=== PATIENT | male | born 1950 | race Caucasian/White ===

== ENCOUNTER 2025-01-07 12:29 | Inpatient (IN) | payer OTHER, MEDICAID ==
[~2025-01-07] VITALS: Ht 167.6 cm; Wt 210.0 kg
--- NOTE | 2025-01-07 12:46 | ED.PDOC ---
SOB-HPI HPI Comments 74 year old male YAZAN presents to the ED with chief complaint of SOB and hypotension. EMS reports patient had been recently discharged from [facility] yesterday after staying for a week due to pneumonia. EMS relays patient started to experience nausea, dizziness, and weakness since returning home and called 911 today due to continuing to experience the same symptoms. EMS states patient's BP on scene was noted to be 54/40 and his O2 saturation was at 88% on 3L of O2 via NC. EMS notes they provided the patient O2 via non-rebreather, going up to 99% along with IVF, which improved his BP to 105/70. Patient reports that he feels a bit better with the O2 and fluids provided. Patient denies any chest pain, cough, congestion, fever, chills, dizziness, or vomiting. Chief Complaint: Shortness of Breath Time Seen by MD: 12:41 Reviewed notes: Nurses Notes, Pharmacist Helper Notes, Medications, Allergies Information Source: Patient, Emergency Med Personnel Mode of Arrival: EMS Severity: Moderate Timing: Days Duration: Since onset Context: At Rest PE Risk Factors: None History of: Asthma, CHF, Recent Antibiotic Prehospital treatment: IVF, Oxygen Modifying Factors: Nothing Past Medical History PAST MEDICAL HISTORY: Asthma, CHF, CKF, DM, GERD, HTN, Thyroid Surgical History: CABG, Cholecystectomy, Tonsillectomy Family History Family History: Reviewed,noncontributory to illness, Family hx of DM Social History Smoker: Non-Smoker Alcohol: Occasionally Drugs: Denies Drug Use Lives In: Home Constitutional: reports: weakness; denies: chills, diaphoresis, fatigue, fever, malaise, sweats, others EENTM: denies: blurred vision, double vision, ear bleeding, ear discharge, ear drainage, ear pain, ear ringing, eye pain, eye redness, hearing loss, mouth pain, mouth swelling, nasal discharge, nose bleeding, nose congestion, nose pain , photophobia, tearing, throat pain, throat swelling, voice changes, others Respiratory: reports: shortness of breath; denies: cough, hemoptysis, orthopnea, SOB at rest, SOB with excertion, stridor, wheezing, others Cardiovascular: denies: chest pain, dizzy spells, diaphoresis, Dyspnea on exertion, edema, irregular heart beat, left arm pain, lightheadedness, palpitations, PND, syncope, others Gastrointestinal: reports: nausea; denies: abdomen distended, abdominal pain, blood streaked bowels, constipated, diarrhea, dysphagia, difficulty swallowing, hematemesis, melena, poor appetite, poor fluid intake, rectal bleeding, rectal pain, vomiting, others Genitourinary: denies: burning, dysuria, flank pain, frequency, hematuria, incontinence, penile discharge, penile sore, pain, testicle pain, testicle swelling, urgency, others Neurological: reports: dizziness; denies: fainting, headache, left sided numbness, left sided weakness, numbness, paresthesia, pre-existing deficit, right sided numbness, right sided weakness, seizure, speech problems, tingling, tremors, weakness, others Musculoskeletal: denies: back pain, gout, joint pain, joint swelling, muscle pain, muscle stiffness, neck pain, others Integumetry: denies: bruises, change in color, change in hair/nails, dryness, laceration, lesions, lumps, rash, wounds, others Allergic/Immunocompromised: denies: Difficulty Healing, Frequent Infections, Hives, Itching, others Hematologic/Lymphatic: denies: anemia, blood clots, easy bleeding, easy bruising, swollen glands, others Endocrine: denies: excessive hunger, excessive sweating, excessive thirst, excessive urination, flushing, intolerance to cold, intolerance to heat, unexplained weight gain, unexplained weight loss, others Psychiatric: denies: anxiety, bipolar disorder, depression, hopeless, panic disorder, schizophrenia, sleepless, suicidal, others All Other Systems: Reviewed and Negative Physical Exam General Appearance: Moderate Distress HEENT: Normal ENT Inspection, Pharynx Normal, TMs Normal Neck: Full Range of Motion, Non-Tender, Normal, Normal Inspection Respiratory: Chest Non-Tender, Decreased Breath Sounds, No Accessory Muscle Use, Respiratory Distress, Rhonchi Cardiovascular: No Edema, No JVD, No Murmur, No Gallop, Normal Peripheral Pulses, Regular Rate/Rhythm Breast Exam: Deferred Gastrointestinal: No Organomegaly, Non Tender, No Pulsatile Mass, Normal Bowel Sounds, Soft Genitalia: Deferred Pelvic: Deferred Rectal: Deferred Extremities: No calf tenderness, Normal capillary refill, Normal inspection, Normal range of motion, Non-tender, No pedal edema Musculoskeletal : Apperance: Normal Neurologic: Alert, loading checker II-XII nml as Tested, No Motor Deficits, Normal Affect, Normal Mood, No Sensory Deficits Cerebellar Function: Normal Reflexes: Normal Skin: Dry, Normal Color, Warm Lymphatic: No Adenopathy EKG EKG : Pulse Rate (adult): 79 [place]: Normal Cardiac Rhythm: NSR Block: None Hypertrophy: None ST: Normal Was a procedure done? Was a procedure done?: No Differential Dx Differential Diagnosis: Asthma, Bronchitis, CHF, COPD, Pneumonia X-Ray, Labs, Meds, VS Vital Signs Date Time Temp Pulse Resp B/P (MAP) Pulse Ox O2 Delivery O2 Flow Rate FiO2 01/07/25 14:15 97.1 61 16 117/59 (78) 99 97.1 01/07/25 14:00 61 16 99 Non-Rebreather 10 N/A 01/07/25 12:46 79 01/07/25 12:45 22 10 Non-Rebreather 15 N/A 01/07/25 12:41 79 01/07/25 12:38 99.0 75 22 94/20 (44) 100 Lab Test 01/07/25 15:37 01/07/25 14:34 01/07/25 13:25 01/07/25 12:49 Range/Units Troponin I High Sensitivity Pending 8 </=54 ng/L White Blood Count 10.9 H 4.4-10.8 10^3/uL Red Blood Count 4.79 4.5-5.90 10^6/uL Hemoglobin 14.1 13.5-17.5 g/dL Hematocrit 42.7 41.0-53.0 % Mean Corpuscular Volume 89.2 80.0-100.0 fL Mean Corpuscular Hemoglobin 29.4 28.0-32.0 pg Mean Corpuscular Hemoglobin Concent 33.0 32.0-36.0 g/dL Red Cell Distribution Width 14.9 H 11.8-14.3 % Platelet Count 196 140-450 10^3/uL Mean Platelet Volume 7.7 6.9-10.8 fL Neutrophils (%) (Auto) 80.4 H 37.0-80.0 % Lymphocytes (%) (Auto) 11.3 10.0-50.0 % Monocytes (%) (Auto) 7.3 0.0-12.0 % Eosinophils (%) (Auto) 0.5 0.0-7.0 % Basophils (%) (Auto) 0.5 0.0-2.0 % Neutrophils # (Auto) 8.8 H 1.6-8.6 10 ^3/uL Lymphocytes # (Auto) 1.2 0.4-5.4 10 ^3/uL Monocytes # (Auto) 0.8 0-1.3 10 ^3/uL Eosinophils # (Auto) 0.1 0-0.8 10 ^3/uL Basophils # (Auto) 0.1 0-0.2 10 ^3/uL Nucleated Red Blood Cells 0.1 % Sodium Level 140 136-145 mmol/L Potassium Level 3.9 3.5-5.1 mmol/L Chloride Level 105 98-107 mmol/L Carbon Dioxide Level 27 20-31 mmol/L Anion Gap 8 5-15 Blood Urea Nitrogen 21 9-23 mg/dL Creatinine 1.22 0.700-1.30 mg/dL Glomerular Filtration Rate Calc 62 >90 mL/min BUN/Creatinine Ratio 17.2 10.0-20.0 Serum Glucose 150 H 74-106 mg/dL Lactic Acid Level Pending Calcium Level 8.7 8.7-10.4 mg/dL B-Type Natriuretic Peptide 58.58 0-100 pg/mL Influenza Type A Antigen Negative Negative Influenza Type B Antigen Negative Negative SARS-CoV-2 Antigen (Rapid) Negative NEGATIVE POC Glucose 148 H 70-106 mg/dl IV Hep-Lock was established The CBC shows an elevated white blood cell count of 10.9 The chemistry panel is within normal limits The influenza a and influenza B are negative The COVID test is negative At this time, the troponin level is eight The chest x-ray shows: No sign of abnormalities The patient was being admitted to the hospitalist Images Reviewed?: Images reviewed and evaluated by me Time of 1ST Reevaluation: 15:54 Reevaluation 1ST: Unchanged Patient Education/Counseling: Diagnosis, Treatment, Prognosis Family Education/Counseling: No Family Present Additional Information -Reviewed patient's previous visit(s): - The following tests were ordered, and results were reviewed by me: - Additional information was gathered from interviewing the following independent Historian: EMS - I reviewed and agreed with the following test results read by other provider: - I discussed treatments and results with medical personnel and: patient Comprehensive systems review obtained and negative except for what is stated in the HPI. Departure 1 Departure Time of Disposition: 15:52 Impression: Primary Impression: Acute respiratory failure Qualified Codes: J96.01 - Acute respiratory failure with hypoxia Disposition: 09 ADMITTED INPATIENT Admit to: Tele Condition: Fair Critical Care Note Critical Care Time?: Yes (45 min-critical care time only) Stability Stability form required: Yes Unstable for transfer: Telemetry monitoring (Telemetry monitoring required), ED Physician Assesment (Clinical assesment) Heart Score Heart Score: Heart Score Response (Comments) Value History Moderate Suspicious 1 EKG Normal 0 Age >65 2 Risk Factors >3 or Hx ASHD 2 Troponin Normal limit 0 Total 5 I personally scribed for JANIS JANG MD ([email or web address]) on 01/07/25 at 12:46. Electronically submitted by John White ([email or web address]). JANIS JANG MD Jan 07, 2025 12:46
--- NOTE | 2025-01-07 13:52 | ECG ---
[facility] Test Date: 2025-01-07 Test Time: 12:41:55 Pat Name: JAMIE THOMPSON Department: ER Room: 0251T Gender: M Director Auto: GONZALEZ : 1950 Requested By: JANIS JANG Order Number: [id number] Reading MD: Schuyler Wilkinson Measurements Intervals [place] Rate: 79 P: 0 AR: 0 QRS: -23 QRSD: 96 T: 50 QT: 409 QTc: 469 Interpretive Statements artifacts Normal sinus rhythm with premature atrial contractions. Anteroseptal infarct, age indeterminate Electronically Signed On 01-11-2025 18:44:07 PDT by Schuyler Wilkinson Please click the below link to view image of tracing.
[2025-01-07 14:00] VITALS: PULSE 61; RESP 16; O2SAT 99
--- NOTE | 2025-01-07 14:10 | DVH ---
CHEST RADIOGRAPH Indication: sob Technique: Single frontal view of the chest was obtained COMPARISON: None FINDINGS: Lines and Tubes: Median sternotomy Lungs: Clear Pleura: No effusion. No pneumothorax. Cardiomediastinal contours: Unremarkable Bones: Unremarkable IMPRESSION: No acute disease.
[2025-01-07 14:51] LABS: COVID19 ANTIGEN SOFIA FIA NEGATIVE (NEGATIVE); Rapid Influenza A Negative (Negative); Rapid Influenza B Negative (Negative)
[2025-01-07 15:01] LABS: Basophils # (auto) 0.1 10 ^3/uL (0-0.2); Basophils % (auto) 0.5 % (0.0-2.0); Eosinophils # (auto) 0.1 10 ^3/uL (0-0.8); Eosinophils % (auto) 0.5 % (0.0-7.0); Hematocrit 42.7 % (41.0-53.0); Hemoglobin 14.1 g/dL (13.5-17.5); Lymphocytes # (auto) 1.2 10 ^3/uL (0.4-5.4); Lymphocytes % (auto) 11.3 % (10.0-50.0); Mean Corpuscular Hemoglobin 29.4 pg (28.0-32.0); Mean Corpuscular Volume 89.2 fL (80.0-100.0); Monocytes # (auto) 0.8 10 ^3/uL (0-1.3); Monocytes % (auto) 7.3 % (0.0-12.0); Neutrophils # (auto) 8.8 10 ^3/uL (1.6-8.6); Neutrophils % (auto) 80.4 % (37.0-80.0); Nucleated Red Blood Cells % 0.1 %; Platelet Count (auto) 196 10^3/uL (140-450); Red Blood Cells 4.79 10^6/uL (4.5-5.90); Red Cell Distribution Width 14.9 % (11.8-14.3); White Blood Cell 10.9 10^3/uL (4.4-10.8)
[2025-01-07 15:09] LABS: Chloride 105 mmol/L (98-107); Potassium 3.9 mmol/L (3.5-5.1); Sodium 140 mmol/L (136-145)
[2025-01-07 15:10] LABS: Anion Gap 8 (5-15); Calcium 8.7 mg/dL (8.7-10.4); Carbon Dioxide 27 mmol/L (20-31)
[2025-01-07 15:15] LABS: BUN/Creatinine Ratio 17.2 (10.0-20.0); Blood Urea Nitrogen 21 mg/dL (9-23)
[2025-01-07 15:16] LABS: Glucose 150 mg/dL (74-106)
[2025-01-07] MEDS ORDERED: NITROGLYCERIN 0.4 MG SL TAB SL PRN (16:30)
[2025-01-07] MEDS ORDERED: LEVO50TA7 (16:33)
[2025-01-07] MEDS ORDERED: EMPA1TAB3 (16:33)
[2025-01-07] MEDS ORDERED: ATOR40TA52 (16:33)
[2025-01-07] MEDS ORDERED: FURO20TA4 (16:33)
[2025-01-07] MEDS ORDERED: TICA90TA (16:33)
[2025-01-07] MEDS ORDERED: VENL150C58 (16:33)
[2025-01-07] MEDS ORDERED: ESCI1TAB37 (16:33)
[2025-01-07] MEDS ORDERED: PREG50CA80 (16:33)
[2025-01-07] MEDS ORDERED: DEXTROSE (50%) 50ML SYRG IV PRN (16:45)
[2025-01-07] MEDS: InsuLIN REG 1unit/0.01ml Soln (100units/ml) SC SCH (17:00)
[2025-01-07] MEDS: ACCU-CHEK COMFORT CURVE STRIP VI SCH (17:13)
[2025-01-07 17:22] LABS: LDL Cholesterol 48 mg/dL (< 100)
[2025-01-07 17:24] LABS: Cholesterol 102 mg/dL (< 200)
[2025-01-07 17:26] LABS: HDL Cholesterol 28 mg/dL (40-59); Triglycerides 156 mg/dL (< 150)
[2025-01-07 17:27] LABS: Erythrocyte Sedimentation Rate 28 mm/hr (0-20)
[2025-01-07] MEDS: methylPREDNISolone SOD SUCC 40 MG/ML VL IV ONE (17:34)
[2025-01-07 18:27] VITALS: PULSE 67; RESP 16; O2SAT 94
[2025-01-07] MEDS: ALBUTEROL SULF 2.5 MG/0.5ML(0.5%) NEB SOLN NEB SCH (18:27)
[2025-01-07] MEDS: IPRATROPIUM BROM 0.5 MG/2.5ML INH SOL NEB SCH (18:27)
[2025-01-07 18:35] VITALS: PULSE 66; RESP 16; O2SAT 96
[2025-01-07 19:00] VITALS: BP 121/76; PULSE 66; RESP 16; TEMP 97.1; O2SAT 94
[2025-01-07 20:00] VITALS: PULSE 74; RESP 17; O2SAT 93
[2025-01-07] MEDS: TICAGRELOR 90 MG TAB PO SCH (21:53)
[2025-01-07] MEDS: PREGABALIN 25 MG CAP PO SCH (21:53)
[2025-01-07] MEDS: ATORVASTATIN 20 MG TAB PO SCH (22:05)
[2025-01-08] VITALS (16 sets, daily range): BP systolic 128–158; BP diastolic 56–80; PULSE 56–88; RESP 16–19; TEMP 97.4–98.5; O2SAT 92–98
[2025-01-08 00:16] LABS: Urine Bacteria None Seen /hpf (None Seen)
[2025-01-08 00:35] LABS: Urine Blood Negative /uL (Negative); Urine Clarity Clear (Clear); Urine Color Colorless (Yellow); Urine Protein, UAD TRACE (Negative); Urine Specific Gravity 1.013 (1.001-1.035); Urine Squamous Epithelial Cell None Seen /hpf (<5); Urine Urobilinogen Normal (Negative); Urine pH 6.5 (5.0-9.0)
[2025-01-08] MEDS: Empagliflozin (Jardiance) 25 MG TABLET PO SCH (10:00)
[2025-01-08] MEDS: methylPREDNISolone SOD SUCC 40 MG/ML VL IV SCH (10:06)
[2025-01-08] MEDS: FUROSEMIDE 20 MG TAB PO SCH (10:06)
[2025-01-08] MEDS: LEVOTHYROXINE SODIUM 50 MCG TAB PO SCH (10:07)
--- NOTE | 2025-01-08 10:28 | DVHHP2 ---
History of Present Illness Reason for Visit: SHORTNESS OF BREATH History of Present Illness Patient was a 74-year-old male transported to the emergency room by EMS with shortness of breath. According to the patient, he has been in and out of a [facility] over the past two weeks initially reported with bacterial pneumonia, now with recent diagnosis influenza. Patient had worsening dyspnea today in addition to wheezing, which prompted him to call 911. Upon arrival by EMS the patient was noted to be severely hypotensive as well as hypoxic. At the time of assessment, the patient was found to be on a non- rebreather% FiO2. Has a significant history of coronary artery disease with previous CABG as well as stent placement, asthma, COPD, diabetes mellitus. Cardiovascular: CAD, CHF, HTN, CA Pulmonary: Asthma, COPD Endocrine: Diabetes, Hyperthyroidism Past Surgical History: CABG, Other (Cholecystectomy), Tonsillectomy Family History: None Smoke: No ALCOHOL: none Lives: with Family Review of Systems Constitutional: No: Fever, Chills, Sweats, Weakness, Malaise, Other Eyes: No: Pain, Vision change, Conjunctivae inflammation, Eyelid inflammation, Other, Redness Respiratory: Cough, Shortness of breath, Wheezing Cardiovascular: No: Chest Pain, Palpitations, Orthopnea, Paroxysmal Noc. Dys pnea, Edema, Lt Headedness, Other Gastrointestinal: No: Nausea, Vomiting, Abdominal Pain, Diarrhea, Constipation, Melena, Hematochezia, Other Genitourinary: No Dysuria, No Frequency, No Incontinence, No Hematuria, No Retention, No Other Musculoskeletal: No: other, neck pain, shoulder pain, arm pain, back pain, hand pain, leg pain, foot pain Skin: No: Rash, Lesions, Jaundice, Bruising, Other Neurological: No: Weakness, Numbness, Incoordination, Change in speech, Confusion, Seizures, Other Allergies: Coded Allergies: NO KNOWN ALLERGIES (Unverified , 01/07/25) Medications Current Medications Medications Dose Ordered Sig/Guilel Route Start Time Stop Time Status Last Admin Dose Admin Nitroglycerin 0.4 mg Q5MINP PRN SL 01/07/25 16:30 Morphine Sulfate 2 mg Q30M PRN IV 01/07/25 16:30 Methylprednisolone Sodium Succinate 40 mg DAILY IV 01/08/25 10:00 01/08/25 10:06 40 MG Albuterol 2.5 mg Q6HWA NEB 3/11/25 18:00 01/08/25 06:51 2.5 MG Ipratropium [place] 0.5 mg Q6HWA NEB 01/07/25 18:00 01/08/25 06:51 0.5 MG Diagnostic Test (Pha) 1 strip ACHS 01/07/25 17:00 01/08/25 07:02 1 STRIP Insulin Human Regular ACHS SC 01/07/25 17:00 01/07/25 21:59 3 UNITS Dextrose 50 ml UD PRN IV 01/07/25 16:45 Furosemide 40 mg DAILY PO 01/08/25 10:00 01/08/25 10:06 40 MG Levothyroxine Sodium 50 mcg DAILY PO 01/08/25 10:00 01/08/25 10:07 50 MCG Ticagrelor 90 mg BID PO 01/07/25 22:00 01/08/25 10:06 90 MG Atorvastatin Calcium 40 mg HS PO 01/07/25 22:00 01/07/25 22:05 40 MG Patient Own Medication 25 mg DAILY PO 01/08/25 10:00 Pregabalin 50 mg BID PO 01/07/25 22:00 01/08/25 10:07 50 MG Exam Vital Signs Vital Signs Date Time Temp Pulse Resp B/P (MAP) Pulse Ox O2 Delivery O2 Flow Rate FiO2 01/08/25 10:06 158/75 01/08/25 08:50 98.5 88 18 98 98.5 01/08/25 06:51 Nasal Cannula 4.0 01/08/25 06:51 36 General Appearance: Alert, Oriented X3, mild distress HEENT: Atraumatic, PERRLA Respiratory: Other (Expiratory wheeze) Cardiovascular: Normal S1, Normal S2 Abdominal: Normal bowel sounds, Soft, No tenderness, No hepatospenomegaly Extremities: No cyanosis, No edema, Normal pulses, No tenderness/swelling Skin: No rashes, No breakdown, No significant lesion Neuro: Normal speech, Strength at 5/5 X4 ext, Sensation intact, Cranial nerves 3-12 NL Psych/Mental Status: Mental status NL, Mood NL Labs/Xrays Labs Test 01/08/25 06:48 01/07/25 23:58 01/07/25 18:38 01/07/25 14:34 Range/Units POC Glucose 154 H 70-106 mg/dl Urine Color Colorless Yellow Urine Clarity Clear Clear Urine pH 6.5 5.0-9.0 Urine Specific [place] 1.013 1.001-1.035 Urine Protein Trace H Negative Urine Ketones Negative Negative Urine Blood Negative Negative /uL Urine Nitrite Negative Negative Urine Bilirubin Negative Negative Urine Urobilinogen Normal Negative mg/dL Urine Leukocyte Esterase Negative Negative /uL Urine RBC 1 0 - 3 /hpf Urine Microscopic WBC 0-3 /HPF Urine Squamous Epithelial Cells None seen <5 /hpf Urine Bacteria None seen None Seen /hpf Urine Glucose 4+ H Normal mg/dL Troponin I High Sensitivity 9 </=54 ng/L White Blood Count 10.9 H 4.4-10.8 10^3/uL Red Blood Count 4.79 4.5-5.90 10^6/uL Hemoglobin 14.1 13.5-17.5 g/dL Hematocrit 42.7 41.0-53.0 % Mean Corpuscular Volume 89.2 80.0-100.0 fL Mean Corpuscular Hemoglobin 29.4 28.0-32.0 pg Mean Corpuscular Hemoglobin Concent 33.0 32.0-36.0 g/dL Red Cell Distribution Width 14.9 H 11.8-14.3 % Platelet Count 196 140-450 10^3/uL Mean Platelet Volume 7.7 6.9-10.8 fL Neutrophils (%) (Auto) 80.4 H 37.0-80.0 % Lymphocytes (%) (Auto) 11.3 10.0-50.0 % Monocytes (%) (Auto) 7.3 0.0-12.0 % Eosinophils (%) (Auto) 0.5 0.0-7.0 % Basophils (%) (Auto) 0.5 0.0-2.0 % Neutrophils # (Auto) 8.8 H 1.6-8.6 10 ^3/uL Lymphocytes # (Auto) 1.2 0.4-5.4 10 ^3/uL Monocytes # (Auto) 0.8 0-1.3 10 ^3/uL Eosinophils # (Auto) 0.1 0-0.8 10 ^3/uL Basophils # (Auto) 0.1 0-0.2 10 ^3/uL Nucleated Red Blood Cells 0.1 % Erythrocyte Sedimentation Rate 28 H 0-20 mm/hr Sodium Level 140 136-145 mmol/L Potassium Level 3.9 3.5-5.1 mmol/L Chloride Level 105 98-107 mmol/L Carbon Dioxide Level 27 20-31 mmol/L Anion Gap 8 5-15 Blood Urea Nitrogen 21 9-23 mg/dL Creatinine 1.22 0.700-1.30 mg/dL Glomerular Filtration Rate Calc 62 >90 mL/min BUN/Creatinine Ratio 17.2 10.0-20.0 Serum Glucose 150 H 74-106 mg/dL Hemoglobin A1c 6.3 H <5.7 % A1C Lactic Acid Level 1.3 0.4-2.0 mmol/L Calcium Level 8.7 8.7-10.4 mg/dL C-Reactive Protein High Sensitivity 0.72 <1.0 mg/dL B-Type Natriuretic Peptide 58.58 0-100 pg/mL Triglycerides Level 156 H < 150 mg/dL Cholesterol Level 102 < 200 mg/dL LDL Cholesterol 48 < 100 mg/dL HDL Cholesterol 28 L 40-59 mg/dL Test 01/07/25 13:25 Range/Units Influenza Type A Antigen Negative Negative Influenza Type B Antigen Negative Negative SARS-CoV-2 Antigen (Rapid) Negative NEGATIVE Assessment/Plan Assessment/Plan Impression: -acute hypoxic respiratory failure -COPD with exacerbation -coronary artery disease with previous CABG and stent placement -obesity -hypothyroidism -diabetes mellitus Plan: -admit to telemetry unit -bronchodilators, Pulmicort, Solu-Medrol -reconcile home medications -regular insulin sliding scale -titrate O2 to keep saturation greater than 92%. Wean off of high-flow -repeat labs chest x-ray in a.m. Total time spent with patient discussing and formulating plan of care: 35 minutes. This medical document was created using an electronic medical record system with [employer] dictation system. Although this document has been carefully reviewed, there may still be some phonetic and typographical errors. These areas are purely typographical due to imperfections of the software programs, and do not reflect any compromise in the patient's medical care. Plan discussed with: Patient, Other (RN) My Orders Orders - YARITZA HUBER SHINGLE PACKER Procedure Category Date Status Time Admit ADMIT 01/07/25 Transmitted 16:29 Nitroglycerin PHA 01/07/25 In Process Sublingual (Ntrostat 16:30 Morphine Sulfate PHA 01/07/25 In Process Injection 16:30 Stat Ekg For Chest DUDLEY 01/07/25 In Process Pain 16:29 Notify Of Changes DUDLEY 01/07/25 In Process From Base 16:29 X Ray Developing Machine Operator For DUDLEY 01/07/25 In Process 24 Hours 16:29 Emergency Dysrhythmia DUDLEY 01/07/25 In Process Protocol 16:29 Rhythm Strips Once DUDLEY 01/07/25 In Process Every Shift 16:29 Oxygen By Nasal RT 01/07/25 Transmitted Cannula 16:29 Methylprednisolone PHA 01/08/25 In Process Sod Succ (Solu Medrol 10:00 Albuterol Medneb PHA 01/07/25 In Process (Ventolin Medneb) 18:00 Ipratropium Medneb PHA 01/07/25 In Process (Atrovent Medneb) 18:00 Consistent DIET 01/07/25 Transmitted Carb(Ccho)Diabetes Dinner Glucose Blood PHA 01/07/25 In Process (Accu-Chek Comfort 17:00 Insulin R (Human) PHA 01/07/25 In Process (Insulin R) 17:00 Dextrose 50% Syringe PHA 01/07/25 In Process 16:45 Furosemide Tablet PHA 01/08/25 In Process (Lasix Tablet) 10:00 Levothyroxine Tablet PHA 01/08/25 In Process (Synthroid Tablet) 10:00 Ticagrelor (Brilinta) PHA 01/07/25 In Process 22:00 Atorvastatin (Lipitor) PHA 01/07/25 In Process 22:00 (Nf) Empagliflozin PHA 01/08/25 In Process (Jardiance) 10:00 Pregabalin Capsule PHA 01/07/25 In Process (Lyrica Capsule) 22:00 Date of Service: Jan 07, 2025 Billing Provider: YARITZA HUBER NP Common Visit Codes: [id number] INP/OBS CARE (HIGH) YARITZA HUBER NP Jan 08, 2025 10:28
--- NOTE | 2025-01-08 11:52 | DVHPN2 ---
Subjective Patient continues to report having shortness of breath. Reviewed: Care Plan, H&P, Labs Changes from previous H/P or p: No Changes Eyes: No Pain, No Vision change, No Conjunctivae inflammation, No Eyelid inflammation, No Other, No Redness Cardiovascular: No Chest Pain, No Palpitations, No Orthopnea, No Paroxysmal Noc. Dyspnea, No Edema, No Lt Headedness, No Other Respiratory: Cough, Shortness of breath, Wheezing Gastrointestinal: No Nausea, No Vomiting, No Abdominal Pain, No Diarrhea, No Constipation, No Melena, No Hematochezia, No Other Genitourinary: No Dysuria, No Frequency, No Incontinence, No Hematuria, No Retention, No Other Musculoskeletal: No other, No neck pain, No shoulder pain, No arm pain, No back pain, No hand pain, No leg pain, No foot pain Skin: No Rash, No Lesions, No Jaundice, No Bruising, No Other Objective Vitals Vital Signs Date Time Temp Pulse Resp B/P (MAP) Pulse Ox O2 Delivery O2 Flow Rate FiO2 01/08/25 10:06 158/75 01/08/25 10:00 98 Nasal Cannula* 4 36 01/08/25 08:50 98.5 88 18 98.5 Intake/Output Intake and Output 01/08/25 07:00 Intake Total 0 ml Output Total 0 ml Balance 0 ml Intake Oral 0 ml Output Urine Total 0 ml General Appearance: Alert, Oriented X3, Cooperative, No acute distress HEENT: Atraumatic, PERRLA Lungs: Normal air movement, Other (Inspiratory wheezing) Cardiovascular: Normal S1, Normal S2 Musculoskeletal: Normal sensory function, Normal motor function Neuro: Normal speech Skin: Dry, Intact, Warm Psych/Mental Status: Mental status NL, Mood NL Medications Current Medications Medications Dose Ordered Sig/Guille Route Start Time Stop Time Status Last Admin Dose Admin Nitroglycerin 0.4 mg Q5MINP PRN SL 01/07/25 16:30 Morphine Sulfate 2 mg Q30M PRN IV 01/07/25 16:30 Methylprednisolone Sodium Succinate 40 mg DAILY IV 01/08/25 10:00 01/08/25 10:06 40 MG Albuterol 2.5 mg Q6HWA NEB 01/07/25 18:00 01/08/25 06:51 2.5 MG Ipratropium Clear 0.5 mg Q6HWA NEB 01/07/25 18:00 01/08/25 06:51 0.5 MG Diagnostic Test (Pha) 1 strip ACHS 01/07/25 17:00 01/08/25 07:02 1 STRIP Insulin Human Regular ACHS SC 01/07/25 17:00 01/07/25 21:59 3 UNITS Dextrose 50 ml UD PRN IV 01/07/25 16:45 Furosemide 40 mg DAILY PO 01/08/25 10:00 01/08/25 10:06 40 MG Levothyroxine Sodium 50 mcg DAILY PO 01/08/25 10:00 01/08/25 10:07 50 MCG Ticagrelor 90 mg BID PO 01/07/25 22:00 01/08/25 10:06 90 MG Atorvastatin Calcium 40 mg HS PO 01/07/25 22:00 01/07/25 22:05 40 MG Patient Own Medication 25 mg DAILY PO 01/08/25 10:00 Pregabalin 50 mg BID PO 01/07/25 22:00 01/08/25 10:07 50 MG Laboratory Results Laboratory Tests 01/07/25 14:34 Chemistry Test 01/07/25 14:34 Calcium Level 8.7 mg/dL (8.7-10.4) Lipid panel Test 01/07/25 14:34 Cholesterol Level 102 mg/dL (< 200) HDL Cholesterol 28 mg/dL (40-59) L Triglycerides Level 156 mg/dL (< 150) H Cardiac Markers Test 01/07/25 14:34 B-Type Natriuretic Peptide 58.58 pg/mL (0-100) HgA1c, TSH Test 01/07/25 14:34 Hemoglobin A1c 6.3 % A1C (<5.7) H Urinalysis Test 01/07/25 23:58 Urine Color Colorless (Yellow) Urine Clarity Clear (Clear) Urine pH 6.5 (5.0-9.0) Urine Specific [place] 1.013 (1.001-1.035) Urine Protein Trace (Negative) H Urine Ketones Negative (Negative) Urine Blood Negative /uL (Negative) Urine Nitrite Negative (Negative) Urine Bilirubin Negative (Negative) Urine Urobilinogen Normal mg/dL (Negative) Urine Leukocyte Esterase Negative /uL (Negative) Urine RBC 1 /hpf (0 - 3) Urine Microscopic WBC /HPF (0-3) Urine Squamous Epithelial Cells None seen /hpf (<5) Urine Bacteria None seen /hpf (None Seen) Urine Glucose 4+ mg/dL (Normal) H Labs and/or images reviewed: Labs reviewed by me, Image(s) reviewed by me Assessment/Plan Assessment/Plan Impression: -acute hypoxic respiratory failure -COPD with exacerbation -coronary artery disease with previous CABG and stent placement -obesity -hypothyroidism -diabetes mellitus Plan: -events: Patient's hypotension has resolved. Continues to report having subjective dyspnea is currently on 4 L via nasal cannula. Repeat labs. If D- dimer is elevated, consider CT angiogram of the chest given multiple admissions to the hospital. -bronchodilators, Pulmicort, Solu-Medrol -reconcile home medications -regular insulin sliding scale -titrate O2 to keep saturation greater than 92%. Currently on nasal cannula at 4 liters/minute -repeat labs. Total time spent with patient discussing and formulating plan of care: 35 minutes. This medical document was created using an electronic medical record system with [employer] dictation system. Although this document has been carefully reviewed, there may still be some phonetic and typographical errors. These areas are purely typographical due to imperfections of the software programs, and do not reflect any compromise in the patient's medical care. Plan discussed with: Patient, Other (RN) My Orders Orders - YARITZA HUBER NP Procedure Category Date Status Time Admit ADMIT 01/07/25 Transmitted 16:29 Nitroglycerin PHA 01/07/25 In Process Sublingual (Ntrostat 16:30 Morphine Sulfate PHA 01/07/25 In Process Injection 16:30 Stat Ekg For Chest [facility] 01/07/25 In Process Pain 16:29 Notify Of Changes [facility] 01/07/25 In Process From Base 16:29 Information Technology Coordinator For [facility] 01/07/25 In Process 24 Hours 16:29 Emergency Dysrhythmia [facility] 01/07/25 In Process Protocol 16:29 Rhythm Strips Once [facility] 01/07/25 In Process Every Shift 16:29 Oxygen By Nasal RT 01/07/25 Transmitted Cannula 16:29 Methylprednisolone PHA 01/08/25 In Process Sod Succ (Solu Medrol 10:00 Albuterol Medneb PHA 01/07/25 In Process (Ventolin Medneb) 18:00 Ipratropium Medneb PHA 01/07/25 In Process (Atrovent Medneb) 18:00 Consistent DIET 01/07/25 Transmitted Carb(Ccho)Diabetes Dinner Glucose Blood PHA 01/07/25 In Process (Accu-Chek Comfort 17:00 Insulin R (Human) PHA 01/07/25 In Process (Insulin R) 17:00 Dextrose 50% Syringe PHA 01/07/25 In Process 16:45 Furosemide Tablet PHA 01/08/25 In Process (Lasix Tablet) 10:00 Levothyroxine Tablet PHA 01/08/25 In Process (Synthroid Tablet) 10:00 Ticagrelor (Brilinta) PHA 01/07/25 In Process 22:00 Atorvastatin (Lipitor) PHA 01/07/25 In Process 22:00 (Nf) Empagliflozin PHA 01/08/25 In Process (Jardiance) 10:00 Pregabalin Capsule PHA 01/07/25 In Process (Lyrica Capsule) 22:00 Basic Metabolic Panel LAB 01/08/25 Transmitted 11:48 Complete Blood Count LAB 01/08/25 Transmitted 11:48 D-Dimer LAB 01/08/25 Transmitted 11:48 PTPTT LAB 01/08/25 Transmitted 11:48 Abg W/ Co-Ox RT 01/08/25 Transmitted 11:49 Date of Service: Jan 08, 2025 Billing Provider: YARITZA HUBER NP Common Visit Codes: [id number] INP/OBS CARE(HIGH) YARITZA HUBER NP Jan 08, 2025 11:52
[2025-01-08 12:10] LABS: Base Excess 2.6 mmol/L (-2.0-3.0)
[2025-01-08 13:22] LABS: Basophils # (auto) 0 10 ^3/uL (0-0.2); Basophils % (auto) 0.2 % (0.0-2.0); Eosinophils # (auto) 0 10 ^3/uL (0-0.8); Eosinophils % (auto) 0.1 % (0.0-7.0); Hematocrit 50.8 % (41.0-53.0); Hemoglobin 16.6 g/dL (13.5-17.5); Lymphocytes # (auto) 1.1 10 ^3/uL (0.4-5.4); Lymphocytes % (auto) 12.1 % (10.0-50.0); Mean Corpuscular Hemoglobin 29.6 pg (28.0-32.0); Mean Corpuscular Hgb Conc. 32.6 g/dL (32.0-36.0); Mean Corpuscular Volume 90.7 fL (80.0-100.0); Monocytes # (auto) 0.3 10 ^3/uL (0-1.3); Monocytes % (auto) 3.4 % (0.0-12.0); Neutrophils # (auto) 7.5 10 ^3/uL (1.6-8.6); Neutrophils % (auto) 84.2 % (37.0-80.0); Nucleated Red Blood Cells % 1.2 %; Platelet Count (auto) 223 10^3/uL (140-450); Red Blood Cells 5.61 10^6/uL (4.5-5.90); Red Cell Distribution Width 15.2 % (11.8-14.3); White Blood Cell 8.9 10^3/uL (4.4-10.8)
[2025-01-08 13:29] LABS: Carbon Dioxide 28 mmol/L (20-31); Chloride 100 mmol/L (98-107)
[2025-01-08 13:30] LABS: Anion Gap 8 (5-15); Potassium 4.2 mmol/L (3.5-5.1)
[2025-01-08 13:31] LABS: Calcium 9.8 mg/dL (8.7-10.4)
[2025-01-08 13:32] LABS: Sodium 136 mmol/L (136-145)
[2025-01-08 13:36] LABS: Blood Urea Nitrogen 18 mg/dL (9-23)
[2025-01-08 13:41] LABS: Glucose 181 mg/dL (74-106)
[2025-01-08 13:52] LABS: INR 1.03 (0.9-1.15); Prothrombin Time 10.9 sec (9.3-11.8)
[2025-01-09] VITALS (16 sets, daily range): BP systolic 93–137; BP diastolic 63–75; PULSE 59–79; RESP 16–20; TEMP 97.7–97.8; O2SAT 91–97
[2025-01-09] MEDS ORDERED: IOHEXOL 350 MG/ML 100ML IJ ONE (10:07)
[2025-01-09] MEDS: MORPHINE SULFATE INJ 2 MG/ml SYRG IV PRN (12:24)
--- NOTE | 2025-01-09 14:12 | DVH ---
CTA Chest with intravenous contrast INDICATION: HYPOXIA; RULE OUT PE COMPARISON: None TECHNIQUE: Multidetector spiral CTA of the chest was performed of the chest with intravenous contrast . PULMONARY ANGIOGRAPHY PROTOCOL was utilized using a bolus-tracking technique centered on the main p ulmonary artery. Axial, coronal and sagittal multiplanar and MIP reformats were performed. Radiation Dose : 1. Chest: CTDI volume is 26.56 mGy. Dose-length product is 1024.61 mGy*cm The dose indicators for CT are the volume Computed Tomography (CT) Dose Index (CTDIvol) and the Dose Length Product (DLP), and are measured in units of mGy and mGy-cm, respectively. These indicators are not patient dose, but values generated from the CT scanner acquisition factors. The report includes radiation exposure data for exposures received during this examination. Findings: Pulmonary artery: No pulmonary embolism Lower neck: Normal thyroid. Lungs: Patchy bilateral lower lobe airspace opacities. Subtle diffuse patchy ground-glass airspace op acities. Heart/Vascular Structures: Cardiomegaly. Coronary artery calcifications. Vascular calcifications of t he aorta. Lymph Nodes: No adenopathy Pleura: No pleural effusion or significant pneumothorax. Musculoskeletal: No acute osseous abnormality. Degenerative changes of the spine. Soft tissues: Normal. Upper abdomen: Post cholecystectomy. IMPRESSION: Limited examination secondary to patient motion artifact. No pulmonary embolism. Multifocal subtle diffuse patchy ground-glass airspace opacities and bilateral lower lobe airspace op acities. Findings may represent multifocal infection.
[2025-01-09] MEDS ORDERED: VANCOMYCIN PER PHARMACY 0 MG IV SCH (16:45)
[2025-01-09] MEDS: VANCOMYCIN 1GM/250ML KIT 250 ML IV SCH (17:30)
[2025-01-09] MEDS: CEFEPIME 1GM/ 50ML 50 ML IV SCH (21:50)
[2025-01-10] VITALS (19 sets, daily range): BP systolic 123–160; BP diastolic 69–87; PULSE 52–81; RESP 16–24; TEMP 97.2–97.6; O2SAT 90–98
[2025-01-10] MEDS: VANCOMYCIN 750MG KIT 100 ML IV SCH (05:03)
[2025-01-10 06:58] LABS: Basophils # (auto) 0.1 10 ^3/uL (0-0.2); Basophils % (auto) 0.3 % (0.0-2.0); Eosinophils # (auto) 0.1 10 ^3/uL (0-0.8); Eosinophils % (auto) 0.4 % (0.0-7.0); Hematocrit 47.1 % (41.0-53.0); Hemoglobin 15.8 g/dL (13.5-17.5); Lymphocytes # (auto) 2.2 10 ^3/uL (0.4-5.4); Lymphocytes % (auto) 14.8 % (10.0-50.0); Mean Corpuscular Hemoglobin 29.6 pg (28.0-32.0); Mean Corpuscular Hgb Conc. 33.6 g/dL (32.0-36.0); Mean Corpuscular Volume 88.2 fL (80.0-100.0); Monocytes % (auto) 6.8 % (0.0-12.0); Neutrophils # (auto) 11.6 10 ^3/uL (1.6-8.6); Neutrophils % (auto) 77.7 % (37.0-80.0); Nucleated Red Blood Cells % 0.2 %; Platelet Count (auto) 303 10^3/uL (140-450); Red Blood Cells 5.35 10^6/uL (4.5-5.90); Red Cell Distribution Width 14.9 % (11.8-14.3); White Blood Cell 14.9 10^3/uL (4.4-10.8)
[2025-01-10] MEDS: methylPREDNISolone SOD SUCC 125 MG/2 ML VL IV SCH (10:11)
--- NOTE | 2025-01-10 10:31 | DVHPN2 ---
Subjective Patient continues to report having shortness of breath. Reviewed: Care Plan, H&P, Labs Changes from previous H/P or p: No Changes General: Per HPI Eyes: No Pain, No Vision change, No Conjunctivae inflammation, No Eyelid inflammation, No Other, No Redness Cardiovascular: No Chest Pain, No Palpitations, No Orthopnea, No Paroxysmal Noc. Dyspnea, No Edema, No Lt Headedness, No Other Respiratory: Cough, Shortness of breath, Wheezing Gastrointestinal: No Nausea, No Vomiting, No Abdominal Pain, No Diarrhea, No Constipation, No Melena, No Hematochezia, No Other Genitourinary: No Dysuria, No Frequency, No Incontinence, No Hematuria, No Retention, No Other Musculoskeletal: No other, No neck pain, No shoulder pain, No arm pain, No back pain, No hand pain, No leg pain, No foot pain Skin: No Rash, No Lesions, No Jaundice, No Bruising, No Other Objective Vitals Vital Signs Date Time Temp Pulse Resp B/P (MAP) Pulse Ox O2 Delivery O2 Flow Rate FiO2 01/10/25 10:11 139/74 01/10/25 10:04 97 Nasal Cannula 4.0 01/10/25 10:04 36 01/10/25 09:00 97.2 74 16 97.2 Intake/Output Intake and Output 01/10/25 07:00 Intake Total 600 ml Output Total 1200 ml Balance -600 ml Intake Oral 600 ml Output Urine Total 1200 ml # Voids 3 # Bowel Movements 1 General Appearance: Alert, Oriented X3, Cooperative, No acute distress HEENT: Atraumatic, PERRLA Lungs: Normal air movement, Other (Inspiratory wheezing) Cardiovascular: Normal S1, Normal S2 Musculoskeletal: Normal sensory function, Normal motor function Neuro: Normal speech Skin: Dry, Intact, Warm Psych/Mental Status: Mental status NL, Mood NL Medications Current Medications Medications Dose Ordered Sig/Guille Route Start Time Stop Time Status Last Admin Dose Admin Nitroglycerin 0.4 mg Q5MINP PRN SL 01/07/25 16:30 Morphine Sulfate 2 mg Q30M PRN IV 01/07/25 16:30 01/09/25 12:24 2 MG Albuterol 2.5 mg Q6HWA NEB 01/07/25 18:00 01/10/25 05:57 2.5 MG Ipratropium [place] 0.5 mg Q6HWA NEB 01/07/25 18:00 01/10/25 05:58 0.5 MG Diagnostic Test (Pha) 1 strip ACHS 01/07/25 17:00 01/10/25 06:05 1 STRIP Insulin Human Regular ACHS SC 01/07/25 17:00 01/10/25 06:06 2 UNITS Dextrose 50 ml UD PRN IV 01/07/25 16:45 Furosemide 40 mg DAILY PO 01/08/25 10:00 01/10/25 10:11 40 MG Levothyroxine Sodium 50 mcg DAILY PO 01/08/25 10:00 01/10/25 10:10 50 MCG Ticagrelor 90 mg BID PO 01/07/25 22:00 01/10/25 10:10 90 MG Atorvastatin Calcium 40 mg HS PO 01/07/25 22:00 01/09/25 21:50 40 MG Patient Own Medication 25 mg DAILY PO 01/08/25 10:00 Pregabalin 50 mg BID PO 01/07/25 22:00 01/10/25 10:10 50 MG Cefepime HCl 50 ml @ 12.5 mls/hr Q8HR IV 01/09/25 22:00 01/10/25 06:03 12.5 MLS/HR Vancomycin HCl 0 ml @ 0 mls/hr UD IV 01/09/25 16:45 Acetaminophen/ Hydrocodone Bitart 1 tab Q6HPRN PRN PO 01/09/25 17:15 Vancomycin HCl 100 ml @ 100 mls/hr Q12H IV 01/10/25 05:00 01/10/25 05:03 100 MLS/HR Methylprednisolone Sodium Succinate 40 mg DAILY IV 01/10/25 10:00 01/10/25 10:11 40 MG Laboratory Results Laboratory Tests 01/08/25 12:48 01/10/25 05:55 HgA1c, TSH Test 01/10/25 05:55 Thyroid Stimulating Hormone (TSH) 0.85 uIU/mL (0.55-4.78) Urinalysis Test 01/07/25 23:58 Urine Color Colorless (Yellow) Urine Clarity Clear (Clear) Urine pH 6.5 (5.0-9.0) Urine Specific [place] 1.013 (1.001-1.035) Urine Protein Trace (Negative) H Urine Ketones Negative (Negative) Urine Blood Negative /uL (Negative) Urine Nitrite Negative (Negative) Urine Bilirubin Negative (Negative) Urine Urobilinogen Normal mg/dL (Negative) Urine Leukocyte Esterase Negative /uL (Negative) Urine RBC 1 /hpf (0 - 3) Urine Microscopic WBC /HPF (0-3) Urine Squamous Epithelial Cells None seen /hpf (<5) Urine Bacteria None seen /hpf (None Seen) Urine Glucose 4+ mg/dL (Normal) H Microbiology Microbiology Date/Time Source Procedure Growth Status 01/08/25 03:35 Nose MRSA Screen - Final Complete 01/07/25 14:35 Blood Blood Culture - Preliminary NO GROWTH AFTER 48 HOURS OF INCUBATION. Resulted Labs and/or images reviewed: Labs reviewed by me, Image(s) reviewed by me Assessment/Plan Assessment/Plan Impression: -acute hypoxic respiratory failure -COPD with exacerbation -coronary artery disease with previous CABG and stent placement -obesity -hypothyroidism -diabetes mellitus -probable hospital-acquired pneumonia Plan: -events: CT angiogram of the chest negative for pulmonary embolism. Noted bibasilar opacities. -antibiotic started yesterday: Cefepime, vancomycin. Coverage for hospital- acquired pneumonia -bronchodilators, Pulmicort, Solu-Medrol -PT consultation -regular insulin sliding scale -titrate O2 to keep saturation greater than 92%. Currently on nasal cannula at 4 liters/minute -repeat labs. Total time spent with patient discussing and formulating plan of care: 35 minutes. This medical document was created using an electronic medical record system with [employer] dictation system. Although this document has been carefully reviewed, there may still be some phonetic and typographical errors. These areas are purely typographical due to imperfections of the software programs, and do not reflect any compromise in the patient's medical care. Plan discussed with: Patient, Other (RN) My Orders Orders - YARITZA HUBER BOILER HELPER Procedure Category Date Status Time Cefepime 1gm/ 50ml PHA 01/09/25 In Process (Maxipime 1gm/50ml) 22:00 Vancomycin Per PHA 01/09/25 In Process Pharmacy 16:45 Hydrocodone-Acet PHA 01/09/25 In Process 5/325mg Tab ([place] 17:15 Vancomycin Per [facility] 01/11/25 In Process Pharmacy Protoc 05:00 Vancomycin,Trough LAB 01/11/25 Verified 04:00 Vancomycin 750mg Kit PHA 01/10/25 In Process (Vancomycin Hcl) 05:00 Complete Blood Count LAB 01/11/25 Verified 05:00 Complete Blood Count LAB 01/12/25 Verified 05:00 Complete Blood Count LAB 01/13/25 Verified 05:00 Basic Metabolic Panel LAB 01/11/25 Verified 05:00 Basic Metabolic Panel LAB 01/12/25 Verified 05:00 Basic Metabolic Panel LAB 01/13/25 Verified 05:00 Methylprednisolone PHA 01/10/25 In Process Sod Succ (Solu Medrol 10:00 Pt Request For Service PT 01/10/25 Transmitted 10:27 Date of Service: Jan 10, 2025 Billing Provider: YARITZA HUBER NP Common Visit Codes: [id number] INP/OBS CARE(HIGH) YARITZA HUBER NP Jan 10, 2025 10:31
[2025-01-10] MEDS: HYDROcodone-ACET 5/325MG TAB PO PRN (22:29)
[2025-01-11] VITALS (19 sets, daily range): BP systolic 123–144; BP diastolic 8–77; PULSE 54–110; RESP 12–22; TEMP 97.3–97.9; O2SAT 90–98
[2025-01-11 04:55] LABS: Basophils # (auto) 0.1 10 ^3/uL (0-0.2); Basophils % (auto) 0.9 % (0.0-2.0); Eosinophils # (auto) 0.1 10 ^3/uL (0-0.8); Eosinophils % (auto) 0.5 % (0.0-7.0); Hematocrit 47.6 % (41.0-53.0); Hemoglobin 16.1 g/dL (13.5-17.5); Lymphocytes % (auto) 14.2 % (10.0-50.0); Mean Corpuscular Hemoglobin 29.7 pg (28.0-32.0); Mean Corpuscular Hgb Conc. 33.9 g/dL (32.0-36.0); Mean Corpuscular Volume 87.6 fL (80.0-100.0); Monocytes # (auto) 1.1 10 ^3/uL (0-1.3); Monocytes % (auto) 7.5 % (0.0-12.0); Neutrophils # (auto) 10.8 10 ^3/uL (1.6-8.6); Neutrophils % (auto) 76.9 % (37.0-80.0); Nucleated Red Blood Cells % 0.2 %; Platelet Count (auto) 300 10^3/uL (140-450); Red Blood Cells 5.43 10^6/uL (4.5-5.90); Red Cell Distribution Width 14.5 % (11.8-14.3)
[2025-01-11 05:02] LABS: Chloride 100 mmol/L (98-107); Potassium 3.6 mmol/L (3.5-5.1); Sodium 139 mmol/L (136-145)
[2025-01-11 05:03] LABS: Anion Gap 6 (5-15); Calcium 9.5 mg/dL (8.7-10.4)
[2025-01-11 05:08] LABS: BUN/Creatinine Ratio 25.4 (10.0-20.0); Blood Urea Nitrogen 29 mg/dL (9-23); Carbon Dioxide 33 mmol/L (20-31); Glucose 148 mg/dL (74-106)
--- NOTE | 2025-01-11 17:55 | DVHPN2 ---
Subjective Patient continues to report having shortness of breath. Reviewed: Care Plan, H&P, Labs Changes from previous H/P or p: No Changes General: Per HPI Eyes: No Pain, No Vision change, No Conjunctivae inflammation, No Eyelid inflammation, No Other, No Redness Cardiovascular: No Chest Pain, No Palpitations, No Orthopnea, No Paroxysmal Noc. Dyspnea, No Edema, No Lt Headedness, No Other Respiratory: Cough, Shortness of breath, Wheezing Gastrointestinal: No Nausea, No Vomiting, No Abdominal Pain, No Diarrhea, No Constipation, No Melena, No Hematochezia, No Other Genitourinary: No Dysuria, No Frequency, No Incontinence, No Hematuria, No Retention, No Other Musculoskeletal: No other, No neck pain, No shoulder pain, No arm pain, No back pain, No hand pain, No leg pain, No foot pain Skin: No Rash, No Lesions, No Jaundice, No Bruising, No Other Objective Vitals Vital Signs Date Time Temp Pulse Resp B/P (MAP) Pulse Ox O2 Delivery O2 Flow Rate FiO2 01/11/25 17:00 97.5 74 16 139/8 (51) 94 97.5 01/11/25 11:29 Nasal Cannula 4.0 01/11/25 11:29 36 Intake/Output Intake and Output 01/11/25 07:00 Intake Total 1555 ml Balance 1555 ml Intake Oral 1305 ml IV Total 250 ml # Voids 7 General Appearance: Alert, Oriented X3, Cooperative, No acute distress HEENT: Atraumatic, PERRLA Lungs: Normal air movement, Other (Inspiratory wheezing) Cardiovascular: Normal S1, Normal S2 Musculoskeletal: Normal sensory function, Normal motor function Neuro: Normal speech Skin: Dry, Intact, Warm Psych/Mental Status: Mental status NL, Mood NL Medications Current Medications Medications Dose Ordered Sig/Guille Route Start Time Stop Time Status Last Admin Dose Admin Nitroglycerin 0.4 mg Q5MINP PRN SL 01/07/25 16:30 Morphine Sulfate 2 mg Q30M PRN IV 01/07/25 16:30 01/09/25 12:24 2 MG Albuterol 2.5 mg Q6HWA NEB 01/07/25 18:00 01/11/25 11:29 2.5 MG Ipratropium [place] 0.5 mg Q6HWA NEB 01/07/25 18:00 01/11/25 11:29 0.5 MG Diagnostic Test (Pha) 1 strip ACHS 01/07/25 17:00 01/11/25 16:43 1 STRIP Insulin Human Regular ACHS SC 01/07/25 17:00 01/11/25 14:30 4 UNITS Dextrose 50 ml UD PRN IV 01/07/25 16:45 Furosemide 40 mg DAILY PO 01/08/25 10:00 01/11/25 10:01 40 MG Levothyroxine Sodium 50 mcg DAILY PO 01/08/25 10:00 01/11/25 10:01 50 MCG Ticagrelor 90 mg BID PO 01/07/25 22:00 01/11/25 10:02 90 MG Atorvastatin Calcium 40 mg HS PO 01/07/25 22:00 01/10/25 22:05 40 MG Patient Own Medication 25 mg DAILY PO 01/08/25 10:00 Pregabalin 50 mg BID PO 01/07/25 22:00 01/11/25 10:02 50 MG Cefepime HCl 50 ml @ 12.5 mls/hr Q8HR IV 01/09/25 22:00 01/11/25 14:11 12.5 MLS/HR Vancomycin HCl 0 ml @ 0 mls/hr UD IV 01/09/25 16:45 Acetaminophen/ Hydrocodone Bitart 1 tab Q6HPRN PRN PO 01/09/25 17:15 01/10/25 22:29 1 TAB Methylprednisolone Sodium Succinate 40 mg DAILY IV 01/10/25 10:00 01/11/25 10:02 40 MG Laboratory Results Laboratory Tests 01/11/25 04:20 Chemistry Test 01/11/25 04:20 Calcium Level 9.5 mg/dL (8.7-10.4) Urinalysis Test 01/07/25 23:58 Urine Color Colorless (Yellow) Urine Clarity Clear (Clear) Urine pH 6.5 (5.0-9.0) Urine Specific [place] 1.013 (1.001-1.035) Urine Protein Trace (Negative) H Urine Ketones Negative (Negative) Urine Blood Negative /uL (Negative) Urine Nitrite Negative (Negative) Urine Bilirubin Negative (Negative) Urine Urobilinogen Normal mg/dL (Negative) Urine Leukocyte Esterase Negative /uL (Negative) Urine RBC 1 /hpf (0 - 3) Urine Microscopic WBC /HPF (0-3) Urine Squamous Epithelial Cells None seen /hpf (<5) Urine Bacteria None seen /hpf (None Seen) Urine Glucose 4+ mg/dL (Normal) H Microbiology Microbiology Date/Time Source Procedure Growth Status 01/08/25 03:35 Nose MRSA Screen - Final Complete 01/07/25 14:35 Blood Blood Culture - Preliminary NO GROWTH AFTER 72 HOURS OF INCUBATION. Resulted Labs and/or images reviewed: Labs reviewed by me, Image(s) reviewed by me Assessment/Plan Assessment/Plan Impression: -acute hypoxic respiratory failure -COPD with exacerbation -coronary artery disease with previous CABG and stent placement -obesity -hypothyroidism -diabetes mellitus -probable hospital-acquired pneumonia Plan: -events: Hyperglycemia secondary to eating outside food. Patient has not ambulated yet despite PT being consulted. Patient has been out of bed other than to a commode. Subjectively, patient was states that his breathing has improved. -antibiotic started yesterday: Cefepime, vancomycin. Coverage for hospital- acquired pneumonia -bronchodilators, Pulmicort, Solu-Medrol -PT consultation -regular insulin sliding scale -titrate O2 to keep saturation greater than 92%. Currently on nasal cannula at 4 liters/minute -repeat labs. Total time spent with patient discussing and formulating plan of care: 35 minutes. This medical document was created using an electronic medical record system with [employer] dictation system. Although this document has been carefully reviewed, there may still be some phonetic and typographical errors. These areas are purely typographical due to imperfections of the software programs, and do not reflect any compromise in the patient's medical care. Plan discussed with: Patient, Other (RN) My Orders Orders - YARITZA HUBER NP Procedure Category Date Status Time Vancomycin,Random LAB 01/12/25 Verified 04:00 Oob To Chair [place] 01/11/25 Transmitted 17:51 Date of Service: Jan 11, 2025 Billing Provider: YARITZA HUBER NP Common Visit Codes: [id number] INP/OBS CARE(HIGH) YARITZA HUBER NP Jan 11, 2025 17:55
[2025-01-11] MEDS: INSULIN LANTUS (GLARGINE) 1 /0.01ml (100units/ml) SC SCH (23:08)
[2025-01-12] VITALS (19 sets, daily range): BP systolic 121–142; BP diastolic 68–82; PULSE 60–103; RESP 16–20; TEMP 97.2–98.6; O2SAT 91–100
[2025-01-12 07:28] LABS: Basophils # (auto) 0.1 10 ^3/uL (0-0.2); Basophils % (auto) 0.7 % (0.0-2.0); Eosinophils # (auto) 0.1 10 ^3/uL (0-0.8); Eosinophils % (auto) 0.8 % (0.0-7.0); Hematocrit 48.6 % (41.0-53.0); Hemoglobin 16.2 g/dL (13.5-17.5); Lymphocytes # (auto) 2.1 10 ^3/uL (0.4-5.4); Lymphocytes % (auto) 14.5 % (10.0-50.0); Mean Corpuscular Hgb Conc. 33.3 g/dL (32.0-36.0); Monocytes # (auto) 1.1 10 ^3/uL (0-1.3); Monocytes % (auto) 7.9 % (0.0-12.0); Neutrophils # (auto) 10.9 10 ^3/uL (1.6-8.6); Neutrophils % (auto) 76.1 % (37.0-80.0); Nucleated Red Blood Cells % 0.1 %; Platelet Count (auto) 278 10^3/uL (140-450); Red Cell Distribution Width 14.8 % (11.8-14.3); White Blood Cell 14.3 10^3/uL (4.4-10.8)
[2025-01-12 07:43] LABS: Calcium 9.3 mg/dL (8.7-10.4); Chloride 101 mmol/L (98-107); Sodium 137 mmol/L (136-145)
[2025-01-12 07:44] LABS: Anion Gap 9 (5-15); Carbon Dioxide 27 mmol/L (20-31)
[2025-01-12 07:49] LABS: BUN/Creatinine Ratio 20.7 (10.0-20.0)
[2025-01-12 07:50] LABS: Blood Urea Nitrogen 24 mg/dL (9-23); Glucose 203 mg/dL (74-106); Potassium 3.4 mmol/L (3.5-5.1)
[2025-01-12] MEDS ORDERED: VANCOMYCIN 1GM/250ML KIT 250 ML IV SCH (10:00)
--- NOTE | 2025-01-12 11:29 | DVHPN2 ---
Subjective Patient reports that he was able to ambulate with physical therapy this a.m.. Did report having some dyspnea. Reviewed: Care Plan, H&P, Labs Changes from previous H/P or p: Changes General: Per HPI Eyes: No Pain, No Vision change, No Conjunctivae inflammation, No Eyelid inflammation, No Other, No Redness Cardiovascular: No Chest Pain, No Palpitations, No Orthopnea, No Paroxysmal Noc. Dyspnea, No Edema, No Lt Headedness, No Other Respiratory: Cough, Shortness of breath, Wheezing Gastrointestinal: No Nausea, No Vomiting, No Abdominal Pain, No Diarrhea, No Constipation, No Melena, No Hematochezia, No Other Genitourinary: No Dysuria, No Frequency, No Incontinence, No Hematuria, No Retention, No Other Musculoskeletal: No other, No neck pain, No shoulder pain, No arm pain, No back pain, No hand pain, No leg pain, No foot pain Skin: No Rash, No Lesions, No Jaundice, No Bruising, No Other Objective Vitals Vital Signs Date Time Temp Pulse Resp B/P (MAP) Pulse Ox O2 Delivery O2 Flow Rate FiO2 01/12/25 10:40 137/79 01/12/25 10:00 94 Nasal Cannula 4.0 01/12/25 10:00 36 01/12/25 09:00 97.2 74 18 97.2 Intake/Output Intake and Output 01/12/25 07:00 Intake Total 850 ml Output Total 800 ml Balance 50 ml Intake Oral 700 ml IV Total 150 ml Output Urine Total 800 ml # Voids 1 General Appearance: Alert, Oriented X3, Cooperative, No acute distress HEENT: Atraumatic, PERRLA Lungs: Normal air movement, Other (Inspiratory wheezing) Cardiovascular: Normal S1, Normal S2 Abdomen: Normal bowel sounds, Soft, No tenderness, No hepatospenomegaly Musculoskeletal: Normal sensory function, Normal motor function Neuro: Normal speech Skin: Dry, Intact, Warm Psych/Mental Status: Mental status NL, Mood NL Medications Current Medications Medications Dose Ordered Sig/Guille Route Start Time Stop Time Status Last Admin Dose Admin Nitroglycerin 0.4 mg Q5MINP PRN SL 01/07/25 16:30 Morphine Sulfate 2 mg Q30M PRN IV 01/07/25 16:30 01/09/25 12:24 2 MG Albuterol 2.5 mg Q6HWA NEB 01/07/25 18:00 01/12/25 06:47 2.5 MG Ipratropium [place] 0.5 mg Q6HWA NEB 01/07/25 18:00 01/11/25 23:48 0.5 MG Diagnostic Test (Pha) 1 strip ACHS 01/07/25 17:00 01/12/25 10:40 1 STRIP Insulin Human Regular ACHS SC 01/07/25 17:00 01/12/25 10:44 2 UNITS Dextrose 50 ml UD PRN IV 01/07/25 16:45 Furosemide 40 mg DAILY PO 01/08/25 10:00 01/12/25 10:40 40 MG Levothyroxine Sodium 50 mcg DAILY PO 01/08/25 10:00 01/12/25 10:39 50 MCG Ticagrelor 90 mg BID PO 01/07/25 22:00 01/12/25 10:39 90 MG Atorvastatin Calcium 40 mg HS PO 01/07/25 22:00 01/11/25 22:30 40 MG Patient Own Medication 25 mg DAILY PO 01/08/25 10:00 Pregabalin 50 mg BID PO 01/07/25 22:00 01/12/25 10:39 50 MG Vancomycin HCl 0 ml @ 0 mls/hr UD IV 01/09/25 16:45 Acetaminophen/ Hydrocodone Bitart 1 tab Q6HPRN PRN PO 01/09/25 17:15 01/10/25 22:29 1 TAB Cefepime HCl 50 ml @ 12.5 mls/hr Q8HR IV 01/12/25 14:00 Insulin Glargine 15 units HS SC 01/13/25 22:00 Methylprednisolone Sodium Succinate 20 mg DAILY IV 01/13/25 10:00 Vancomycin HCl 250 ml @ 250 mls/hr DAILY@1300 IV 01/12/25 13:00 Laboratory Results Laboratory Tests 01/12/25 06:59 Chemistry Test 01/12/25 06:59 Calcium Level 9.3 mg/dL (8.7-10.4) Urinalysis Test 01/07/25 23:58 Urine Color Colorless (Yellow) Urine Clarity Clear (Clear) Urine pH 6.5 (5.0-9.0) Urine Specific [place] 1.013 (1.001-1.035) Urine Protein Trace (Negative) H Urine Ketones Negative (Negative) Urine Blood Negative /uL (Negative) Urine Nitrite Negative (Negative) Urine Bilirubin Negative (Negative) Urine Urobilinogen Normal mg/dL (Negative) Urine Leukocyte Esterase Negative /uL (Negative) Urine RBC 1 /hpf (0 - 3) Urine Microscopic WBC /HPF (0-3) Urine Squamous Epithelial Cells None seen /hpf (<5) Urine Bacteria None seen /hpf (None Seen) Urine Glucose 4+ mg/dL (Normal) H Microbiology Microbiology Date/Time Source Procedure Growth Status 01/08/25 03:35 Nose MRSA Screen - Final Complete 01/07/25 14:35 Blood Blood Culture - Preliminary NO GROWTH AFTER 72 HOURS OF INCUBATION. Resulted Labs and/or images reviewed: Labs reviewed by me, Image(s) reviewed by me Assessment/Plan Assessment/Plan Impression: -acute hypoxic respiratory failure -COPD with exacerbation -coronary artery disease with previous CABG and stent placement -obesity -hypothyroidism -diabetes mellitus -probable hospital-acquired pneumonia Plan: -events: Patient with worsening hyperglycemia with the evening. Regular insulin sliding scale altered. Patient was placed on Lantus b.i.d., changed to daily given education regarding adhering to consistent carbohydrate diet and avoiding outside hospital food. Patient was states he was able to ambulate. Is now getting out of bed to chair with meals. -continue cefepime and vancomycin -bronchodilators, Pulmicort, Solu-Medrol -PT consultation -regular insulin sliding scale -titrate O2 to keep saturation greater than 92%. Currently on nasal cannula at 4 liters/minute -repeat labs and chest x-ray in a.m. -consider home PT after evaluation has been placed by Physical therapy. Possible DC in a.m. Total time spent with patient discussing and formulating plan of care: 35 minutes. This medical document was created using an electronic medical record system with [employer] dictation system. Although this document has been carefully reviewed, there may still be some phonetic and typographical errors. These areas are purely typographical due to imperfections of the software programs, and do not reflect any compromise in the patient's medical care. Plan discussed with: Patient, Other (RN) My Orders Orders - YARITZA HUBER NP Procedure Category Date Status Time Oob To Chair DUDLEY 01/11/25 In Process 17:51 BIPAP RT 01/11/25 Logged 17:53 * Wound Consult CONS 01/11/25 Transmitted Cefepime 2gm/50ml Ns PHA 01/12/25 In Process (Maxipime 2gm/50ml) 14:00 Vancomycin,Trough LAB 01/14/25 Verified 12:00 Insulin Lantus PHA 01/13/25 In Process (Glargine) (Lantus) 22:00 Methylprednisolone PHA 01/13/25 In Process Sod Succ (Solu Medrol 10:00 Vancomycin 1gm/250ml PHA 01/12/25 In Process Kit 13:00 Vancomycin Per DUDLEY 01/12/25 In Process Pharmacy Protoc 11:14 Date of Service: Jan 12, 2025 Billing Provider: YARITZA HUBER NP Common Visit Codes: [id number] INP/OBS CARE(HIGH) YARITZA HUBER NP Jan 12, 2025 11:28
[2025-01-12] MEDS: VANCOMYCIN 1GM/250ML KIT 250 ML IV SCH (12:08)
[2025-01-12] MEDS: CEFEPIME 2GM/50ML NS 50 ML IV SCH (14:34)
[2025-01-12] MEDS: BUDESONIDE (INHALATION) 0.5 MG/2 ML NEB NEB SCH (18:43)
[2025-01-13] VITALS (11 sets, daily range): BP systolic 109–152; BP diastolic 72–92; PULSE 59–95; RESP 16–20; TEMP 36.8; O2SAT 93–100
[2025-01-13 07:14] LABS: Chloride 103 mmol/L (98-107); Sodium 141 mmol/L (136-145)
[2025-01-13 07:15] LABS: Anion Gap 6 (5-15)
[2025-01-13 07:16] LABS: Calcium 9.4 mg/dL (8.7-10.4)
[2025-01-13 07:21] LABS: Blood Urea Nitrogen 26 mg/dL (9-23); Carbon Dioxide 32 mmol/L (20-31); Glucose 118 mg/dL (74-106); Potassium 3.5 mmol/L (3.5-5.1)
[2025-01-13 07:22] LABS: Basophils # (auto) 0.1 10 ^3/uL (0-0.2); Basophils % (auto) 0.8 % (0.0-2.0); Eosinophils # (auto) 0.3 10 ^3/uL (0-0.8); Eosinophils % (auto) 2.2 % (0.0-7.0); Hematocrit 47.1 % (41.0-53.0); Hemoglobin 16.2 g/dL (13.5-17.5); Lymphocytes # (auto) 2.1 10 ^3/uL (0.4-5.4); Lymphocytes % (auto) 14.9 % (10.0-50.0); Mean Corpuscular Hemoglobin 30.5 pg (28.0-32.0); Mean Corpuscular Hgb Conc. 34.4 g/dL (32.0-36.0); Mean Corpuscular Volume 88.7 fL (80.0-100.0); Monocytes # (auto) 1.1 10 ^3/uL (0-1.3); Monocytes % (auto) 7.9 % (0.0-12.0); Neutrophils # (auto) 10.6 10 ^3/uL (1.6-8.6); Neutrophils % (auto) 74.2 % (37.0-80.0); Nucleated Red Blood Cells % 0.1 %; Platelet Count (auto) 284 10^3/uL (140-450); Red Blood Cells 5.31 10^6/uL (4.5-5.90); Red Cell Distribution Width 15.2 % (11.8-14.3); White Blood Cell 14.2 10^3/uL (4.4-10.8)
[2025-01-13] MEDS: methylPREDNISolone SOD SUCC 125 MG/2 ML VL IV SCH (10:19)
[2025-01-13] MEDS ORDERED: ALBU0.084 NEB (13:19)
[2025-01-13] MEDS ORDERED: CEFD300C2 PO (13:19)
[2025-01-13] MEDS ORDERED: DOXY100C79 PO (13:19)
[2025-01-13] MEDS ORDERED: RESPMIS2 XX (13:19)
--- NOTE | 2025-01-13 13:24 | DVHDS2 ---
Discharge Summary Date of Admission Jan 07, 2025 at 16:29 Date of Discharge: Jan 13, 2025 Admitting Diagnosis Acute on chronic hypoxic respiratory failure Labs/Diagnostic Data: Laboratory Results Test 01/13/25 10:43 01/13/25 06:44 01/12/25 06:59 01/11/25 04:20 POC Glucose 162 mg/dl (70-106) White Blood Count 14.2 10^3/uL (4.4-10.8) Red Blood Count 5.31 10^6/uL (4.5-5.90) Hemoglobin 16.2 g/dL (13.5-17.5) Hematocrit 47.1 % (41.0-53.0) Mean Corpuscular Volume 88.7 fL (80.0-100.0) Mean Corpuscular Hemoglobin 30.5 pg (28.0-32.0) Mean Corpuscular Hemoglobin Concent 34.4 g/dL (32.0-36.0) Red Cell Distribution Width 15.2 % (11.8-14.3) Platelet Count 284 10^3/uL (140-450) Mean Platelet Volume 7.6 fL (6.9-10.8) Neutrophils (%) (Auto) 74.2 % (37.0-80.0) Lymphocytes (%) (Auto) 14.9 % (10.0-50.0) Monocytes (%) (Auto) 7.9 % (0.0-12.0) Eosinophils (%) (Auto) 2.2 % (0.0-7.0) Basophils (%) (Auto) 0.8 % (0.0-2.0) Neutrophils # (Auto) 10.6 10 ^3/uL (1.6-8.6) Lymphocytes # (Auto) 2.1 10 ^3/uL (0.4-5.4) Monocytes # (Auto) 1.1 10 ^3/uL (0-1.3) Eosinophils # (Auto) 0.3 10 ^3/uL (0-0.8) Basophils # (Auto) 0.1 10 ^3/uL (0-0.2) Nucleated Red Blood Cells 0.1 % Sodium Level 141 mmol/L (136-145) Potassium Level 3.5 mmol/L (3.5-5.1) Chloride Level 103 mmol/L (98-107) Carbon Dioxide Level 32 mmol/L (20-31) Anion Gap 6 (5-15) Blood Urea Nitrogen 26 mg/dL (9-23) Creatinine 1.24 mg/dL (0.700-1.30) Glomerular Filtration Rate Calc 61 mL/min (>90) BUN/Creatinine Ratio 21.0 (10.0-20.0) Serum Glucose 118 mg/dL (74-106) Calcium Level 9.4 mg/dL (8.7-10.4) Random Vancomycin Level 12.4 ug/mL (5-10) Vancomycin Level Trough 21.2 ug/mL (5-10) Test 01/10/25 05:55 01/08/25 12:48 01/08/25 12:00 01/07/25 23:58 Thyroid Stimulating Hormone (TSH) 0.85 uIU/mL (0.55-4.78) Prothrombin Time 10.9 sec (9.3-11.8) Prothrombin Time INR 1.03 (0.9-1.15) Activated Partial Thromboplast Time 27.0 SEC (24.5-34.5) D-Dimer, Quantitative 0.77 mg/L FEU (0.0-0.49) Blood Gas Specimen Type Arterial Blood Gas Sample Site Right brachial Blood Gas Patient Temperature 37.0 Arterial Blood Date Drawn [id number] Arterial Blood pH 7.441 (7.350-7.450) Arterial Blood Partial Pressure CO2 40.4 mmHg (35.0-48.0) Arterial Blood Partial Pressure O2 63.2 mmHg (83.0-108.0) Arterial Blood HCO3 26.9 mmol/L (21.0-28.0) Arterial Blood Oxygen Saturation 91.3 % (94.0-98.0) Arterial Blood Base Excess 2.6 mmol/L (-2.0-3.0) Arterial Blood Oxyhemoglobin 90.5 % (94.0-98.0) Arterial Blood Carboxyhemoglobin 0.4 % (0.5-1.5) Arterial Blood Methemoglobin 0.5 % (0.0-1.5) Raj Test N/a Blood Gas Total Hemoglobin 15.70 g/dL (13.5-17.5) Blood Gas Liter Flow 4.00 Blood Gas Modality Nasal cannula FiO2 % 36.0 Urine Color Colorless (Yellow) Urine Clarity Clear (Clear) Urine pH 6.5 (5.0-9.0) Urine Specific [place] 1.013 (1.001-1.035) Urine Protein Trace (Negative) Urine Ketones Negative (Negative) Urine Blood Negative /uL (Negative) Urine Nitrite Negative (Negative) Urine Bilirubin Negative (Negative) Urine Urobilinogen Normal mg/dL (Negative) Urine Leukocyte Esterase Negative /uL (Negative) Urine RBC 1 /hpf (0 - 3) Urine Microscopic WBC /HPF (0-3) Urine Squamous Epithelial Cells None seen /hpf (<5) Urine Bacteria None seen /hpf (None Seen) Urine Glucose 4+ mg/dL (Normal) Test 01/07/25 18:38 01/07/25 14:34 01/07/25 13:25 Troponin I High Sensitivity 9 ng/L (</=54) Erythrocyte Sedimentation Rate 28 mm/hr (0-20) Hemoglobin A1c 6.3 % A1C (<5.7) Lactic Acid Level 1.3 mmol/L (0.4-2.0) C-Reactive Protein High Sensitivity 0.72 mg/dL (<1.0) B-Type Natriuretic Peptide 58.58 pg/mL (0-100) Triglycerides Level 156 mg/dL (< 150) Cholesterol Level 102 mg/dL (< 200) LDL Cholesterol 48 mg/dL (< 100) HDL Cholesterol 28 mg/dL (40-59) Influenza Type A Antigen Negative (Negative) Influenza Type B Antigen Negative (Negative) SARS-CoV-2 Antigen (Rapid) Negative (NEGATIVE) Other Laboratory Tests 01/13/25 06:44 Brief Hx & Hospital Course: History of Present Illness Patient was a 74-year-old male transported to the emergency room by EMS with shortness of breath. According to the patient, he has been in and out of a [facility] over the past two weeks initially reported with bacterial pneumonia, now with recent diagnosis influenza. Patient had worsening dyspnea today in addition to wheezing, which prompted him to call 911. Upon arrival by EMS the patient was noted to be severely hypotensive as well as hypoxic. At the time of assessment, the patient was found to be on a non- rebreather% FiO2. Has a significant history of coronary artery disease with previous CABG as well as stent placement, asthma, COPD, diabetes mellitus. Course of hospitalization: Initial chest x-ray reveals no acute pathology. Patient had CT angiogram of the chest which was negative for pulmonary embolism, but did reveal bibasilar opacities. Patient was started on IV antibiotic therapy with cefepime and vancomycin. Patient was O2 requirements were decreased. Patient had PT evaluation/therapy, for which the patient was able to ambulate approximately 35 ft without any difficulty, or noted hypoxia. Patient was has been out of bed to chair for meals. Subjectively, the patient reports that his respiratory status has improved. Long discussion was made with the patient's daughter, Oanh regarding plan of care. Patient will be discharged home with DME including [id number] shower chair, nebulizer machine, as well as home physical therapy. Patient will be continued on antibiotic therapy with cefdinir 300 mg p.o. b.i.d. x7 days as well as doxycycline 100 mg p.o. b.i.d. x7 days. Patient will be prescribed albuterol nebulizer q.4 hours as needed for acute dyspnea. He was instructed to continue all previous home medications and follow up with his PCP in 1-2 weeks. Physical examination General: Alert and Oriented x3. No acute distress. Well-nourished. Eyes: EOMI. Anicteric. HENT: Moist mucous membranes. Lungs: Clear to auscultation bilaterally. No accessory muscle use. Cardiovascular: Regular rate and rhythm. No murmur. No JVD. Abdomen: Soft, non-tender and non-distended. No palpable masses. Extremities: No edema. Non-tender. Skin: No rashes or lesions. Warm. Neurologic: No focal neurological deficits. CN II-XII grossly intact, but not individually tested. Psychiatric: Cooperative. Appropriate mood and affect. Total time spent with patient discussing and formulating plan of care: 35 minutes. This medical document was created using an electronic medical record system with [employer] dictation system. Although this document has been carefully reviewed, there may still be some phonetic and typographical errors. These areas are purely typographical due to imperfections of the software programs, and do not reflect any compromise in the patient's medical care. Condition at Discharge: Guarded Final Diagnosis/Problems List Acute on chronic hypoxic respiratory failure Secondary diagnosis: -acute hypoxic respiratory failure -COPD with exacerbation -coronary artery disease with previous CABG and stent placement -obesity -hypothyroidism -diabetes mellitus -hospital-acquired pneumonia, probable Gram-positive/Gram-negative etiology -sepsis Discharge Disposition: Home Discharge Instruct/Medications Diet: Consistent carbohydrate, Cardiac 2g Na,low cholest Activity: No Restrictions, As Tolerated Follow Up/Referral: PCP in 1-2 weeks Medications: Doxycycline 100 mg p.o. b.i.d. x7 days Cefdinir 300 mg p.o. b.i.d. x7 days Albuterol nebulizer treatment q4hrs prn 36 Discharge Statement: "Patient was advised to return to the ER or call 911 if any headaches, dizziness, shortness of breath, chest pain, abdominal pain, bleeding, fevers, or worsening of medical condition. Patient was counseled about treatment plan, medications, possible side effects, patientverbalized understanding. All questions were answered to the best of my ability. This discharge took greater then 30 minutes in planning, reviewing documentation, counseling the patient, and discussing with other team members." ASSESSMENT ASSESSMENT Assessment Acute on chronic hypoxic respiratory failure Date of Service: Jan 13, 2025 Billing Provider: YARITZA HUBER NP Common Visit Codes: 12964-RYO/OBS DISCH DAY >30min YARITZA HUBER NP Jan 13, 2025 13:24
[2025-01-13] MEDS ORDERED: INSULIN LANTUS (GLARGINE) 1 /0.01ml (100units/ml) SC SCH (22:00)
== END 2025-01-13 18:51 | disposition home or self-care (01) | DRG 871 ==
LOC: ER 12:29 → EDBD 12:29 → OVERFLOW 16:29 → TELE-EAST 23:57
PROVIDERS: ADMIT Nurse Practitioner Acute Care; ATTEND Nurse Practitioner Acute Care
PROC: 5A09357 Assistance with Respiratory Ventilation, Less than 24 Consecutive Hours, Continuous Positive Airway Pressure (ICD-10-PCS; principal; 2025-01-11)
DX: A41.9 Sepsis, unspecified organism (principal); J15.69 Pneumonia due to other Gram-negative bacteria; J15.9 Unspecified bacterial pneumonia; J96.21 Acute and chronic respiratory failure with hypoxia; J44.1 Chronic obstructive pulmonary disease with (acute) exacerbation; J44.0 Chronic obstructive pulmonary disease with (acute) lower respiratory infection; E03.9 Hypothyroidism, unspecified; E11.9 Type 2 diabetes mellitus without complications; E66.9 Obesity, unspecified; K21.9 Gastro-esophageal reflux disease without esophagitis; I11.0 Hypertensive heart disease with heart failure; I50.9 Heart failure, unspecified; E05.90 Thyrotoxicosis, unspecified without thyrotoxic crisis or storm; Z20.822 Contact with and (suspected) exposure to COVID-19; I25.10 Atherosclerotic heart disease of native coronary artery without angina pectoris; Z95.5 Presence of coronary angioplasty implant and graft; Z95.1 Presence of aortocoronary bypass graft; Z90.49 Acquired absence of other specified parts of digestive tract; Z68.35 Body mass index [BMI] 35.0-35.9, adult; Z79.899 Other long term (current) drug therapy
CPT/HCPCS: 36415; 36600; 71045; 71275; 80048; 80061; 80202; 81001; 82565; 82805; 82962; 83036; 83605; 83880; 84443; 84484; 85025; 85379; 85610; 85652; 85730; 86141; 87040; 87081; 87426; 87804; 93005; 94640; 94660; 97110; 97116; 97163; 97530; 99291; G0378; J0692; J1815